=== PATIENT | female | born 1995 ===

== ENCOUNTER → 2022-10-01 10:50 | Outpatient (CLI) | payer OTHER, SELFPAY ==
--- NOTE | 2022-10-01 10:53 | DI.US.S_ITS ---
PROCEDURE: US OB <= 14 WEEKS FETUS INDICATIONS: Dating OB US OUTSIDE/PRIOR DATING DATA: Last menstrual period (LMP): 06/15/2022. LMP-based estimated date of delivery (DIXIE): 03/22/2023. First dating scan (date and location): 10/01/2022. Estimated date of delivery (DIXIE) from first dating scan: 03/24/2023. The calculations are made using the working DIXIE of 03/22/2023. TECHNIQUE: Real-time scanning was performed of the fetus and maternal pelvic organs, with image documentation. COMPARISON: None. FINDINGS: Embryo: There is a single living IUP with the estimated gestational age is 15 weeks 2 days. heart tone is present with heart rate 165 BPM. Maternal organs: Ovaries are not imaged. IMPRESSION: 1. A single living intrauterine gestation with an estimated gestational age of 15 weeks 2 days. Ultrasound dating concordant with clinical dating. We strive to produce accurate, complete, and clear reports of imaging services. To assist us in improving patient care, this report was composed using standard report templates and voice recognition software. Therefore, it may contain abnormal punctuation, insertions and/or omissions. Occasional wrong-word or sound-alike substitutions may occur. Though we review the report and make efforts to correct it, we do recommend that the report be read carefully in proper context to recognize any text inaccuracies. Dictated by: Shay Taylor M.D. on 10/01/2022 at 13:12 Approved by: Shay Taylor M.D. on 10/01/2022 at 13:16
== END ==
PROVIDERS: Referring Provider Obstetrics & Gynecology; Visit Provider Obstetrics & Gynecology
DX: Z36.87 Encounter for antenatal screening for uncertain dates (principal); Z3A.15 15 weeks gestation of pregnancy
CPT/HCPCS: 76801